=== PATIENT | female | born 1980 | race Caucasian/White ===

== ENCOUNTER → 2018-06-19 | Outpatient (CLI) | payer OTHER ==
--- NOTE | 2018-06-19 19:39 | US ---
EXAM DESCRIPTION: OB ,Early (0-14wks): Ultrasound. CLINICAL HISTORY: Pelvic pain. Cystic mass seen in the left adnexa on office ultrasound. Obstetrical history unknown. LMP 05/05/2018 EGA 6 weeks, 3 days. JOSEPH 02/09/2019. COMPARISON: None. TECHNIQUE: Transpelvic scanning through the urine filled bladder: Endovaginal scannin-dimensional and Doppler modes. FINDINGS: Uterus: 8.3 x 7.1 x 5.2 cm Gestational sac: Well-defined, oval shape. Mean diameter 2.3 cm corresponds to EGA 7 weeks and 1 day. AFV: Subjectively normal. pole: Mean crown-rump length 8 mm corresponds to EGA 6 weeks and 5 days. Yolk sac: 3.4 mm. Subchorionic hemorrhage: 1.2 x 1.0 x 1.0 well-defined hypoechoic region abutting the inferior gestational sac. heart tones: 126 bpm. Cul-de-sac: Minimal fluid to the left of midline. Comments: Combined EGA is 7 weeks and 0 days with JOSEPH 02/05/2019. Right ovary 2.1 x 2.0 x 1.3 cm. Normal waveform and color Doppler vascularity. No dominant cyst.. No adnexal mass or free fluid. Left ovary 3.7 x 2.5 x 1.9 cm. Normal waveform and color Doppler vascularity. 1.6 x 1.6 cm corpus luteum cyst versus follicle with thickened asencio and vascular, but no internal echoes, internal vascularity, or nodules. No adnexal mass, minimal free fluid. IMPRESSION: 1. Single living intrauterine gestation. Combined EGA by gestational sac measurements and crown-rump length measurements is 7 weeks and 0 days with JOSEPH 02/05/2019. Normal size of yolk sac. Well-defined gestational sac. Small subchorionic hemorrhage inferior to the gestational sac. 2. 1.6 x 1.6 cm corpus luteum cyst most likely by appearance in the left ovary. Left ovary is slightly enlarged with normal vascularity. Right ovary is unremarkable. No solid adnexal mass. Minimal fluid in the left adnexa. CRITICAL COMMUNICATION: The critical value was discussed directly by phone with Dr. Taras Cheung at approximately 1935 hours, on 06/19/2018 Electronically signed by: Alejo Berumen MD 06/19/2018 7:37 PM TUBE TEST TECHNICIAN
== END ==
LOC: US 13:16
PROVIDERS: ATTEND General Practice
DX: Z34.90 Encounter for supervision of normal pregnancy, unspecified, unspecified trimester (principal); R10.2 Pelvic and perineal pain; N83.202 Unspecified ovarian cyst, left side; Z3A.14 14 weeks gestation of pregnancy

== ENCOUNTER → 2018-06-23 | Outpatient (CLI) | payer OTHER ==
--- NOTE | 2018-06-23 16:47 | US ---
EXAM DESCRIPTION: OB ,Early (0-14wks): Ultrasound. CLINICAL HISTORY: 38 years Female left adnexal pain. Left ovarian cyst. Obstetrical history unknown. LMP 05/05/2018. JOSEPH 02/09/2019. EGA 7 weeks and 0 days. COMPARISON: First trimester OB ultrasound June 19, 2018. TECHNIQUE: Transpelvic scanning through the urine filled bladder: Endovaginal scannin-dimensional and Doppler modes. FINDINGS: Uterus: 8.8 x 7.4 x 5.9 cm.. Cervix not visualized. Gestational sac: Well-defined. AFV: Subjectively normal. pole: Mean crown-rump length is 11.9 mm with EGA 7 weeks and 3 days. Yolk sac: 3.9 mm. Subchorionic hemorrhage: Low-density to the left of the gestational sac measuring 13 x 8 mm. heart tones: 154 bpm. Cul-de-sac: No fluid. Comments: EGA of 7 weeks and 3 days corresponds to JOSEPH 02/06/2019. Right ovary 2.0 x 1.8 x 1.2 cm. Normal waveform and color Doppler vascularity. No dominant cyst.. No adnexal mass or free fluid. Left ovary 3.6 x 2.4 x 2.4 cm. Estimated volume. Normal waveform and color Doppler vascularity. Cyst with thickened asencio again noted measuring 1.6 x 1.6 x 1.5 cm. Increased vascularity in the asencio.. Minimal free fluid. IMPRESSION: 1. Single living intrauterine gestation with a well-defined gestational sac. By crown-rump length measurements, EGA is 7 weeks 3 days with JOSEPH 02/06/2019. This is 3 days older than the EGA by prior ultrasound one week ago. Small subchorionic hemorrhage remains. Yolk sac normal. 2. 1.6 x 1.6 cm left ovarian follicle with slightly vascular and thickened asencio, is most likely a corpus luteum cyst. No internal contents. Stable since the prior study. Minimal free fluid in the left adnexa. Normal size of the right ovary. Otherwise normal vascularity in both ovaries. No solid adnexal masses. Electronically signed by: Alejo Berumen MD 06/23/2018 4:46 PM [employer]
== END ==
LOC: US 13:23
PROVIDERS: ATTEND General Practice
DX: Z34.90 Encounter for supervision of normal pregnancy, unspecified, unspecified trimester (principal); R10.2 Pelvic and perineal pain

== ENCOUNTER → 2018-11-25 | Outpatient (CLI) | payer OTHER ==
--- NOTE | 2018-11-26 14:16 | US ---
EXAM DESCRIPTION: Venous,Lower Extremity RT: ULTRASOUND. CLINICAL HISTORY: LOCALIZED EDEMA COMPARISON: None Available. TECHNIQUE: Hines-scale and doppler sonographic evaluation of the deep venous system of the right lower extremity. FINDINGS: Doppler evaluation shows normal color flow and normal phasicity and augmentation of the right common femoral vein, femoral vein, popliteal vein, greater saphenous vein, peroneal, and posterior tibial vein. The right lower extremity deep veins were completely compressible; normal occlusion with transducer pressure. Hines-scale survey showed no echogenic thrombus within these veins. IMPRESSION: 1. Duplex ultrasound evaluation of the right lower extremity deep venous system showing no evidence of thrombosis. Electronically signed by: Alejo Berumen MD 11/26/2018 2:13 PM CDT
== END ==
LOC: RAD 15:02
PROVIDERS: ATTEND General Practice
DX: R60.0 Localized edema (principal)